=== PATIENT | female | born 1975 | race American Indian/Alaskan Native ===

== ENCOUNTER 2016-10-24 11:18 | Outpatient (CLI) | payer OTHER ==
--- NOTE | 2016-10-24 13:39 | XRay Report ---
AP pelvis with bilateral hips, 5 views. History: Bilateral hip pain. Findings: The hip joints are normal. There is no evidence of fracture or dislocation. Bony mineralization is normal. This soft tissue abnormalities are seen. Impression: Normal study.
--- NOTE | 2016-10-24 13:41 | XRay Report ---
Left knee 3 views. Findings: There is mild narrowing of the joint space with mild hypertrophic changes at the articular margins. There is also mild narrowing of the patellofemoral joint. Bony mineralization is normal. There are no fractures or other acute findings. Impression: Tricompartmental osteoarthritis.
== END 2016-10-24 11:19 | disposition home or self-care (01) ==
LOC: XRAY 11:18
PROVIDERS: ATTEND Internal Medicine
DX: M17.12 Unilateral primary osteoarthritis, left knee (principal); M25.551 Pain in right hip; M25.552 Pain in left hip; E11.9 Type 2 diabetes mellitus without complications; I10 Essential (primary) hypertension
CPT/HCPCS: 73521